=== PATIENT | female | born 1990 | race Caucasian/White ===

== ENCOUNTER 2016-05-29 19:44 | Emergency (ER) | payer BC ==
[~2016-05-29] VITALS: Ht 162.6 cm; Wt 56.7 kg
--- NOTE | 2016-05-29 20:21 | NUR ---
PT "MILD FREQUENCY X1 WEEK/PRESSURE UPON URINATING". VSS . AWAITING MD ORDER
--- NOTE | 2016-05-29 20:31 | NUR ---
URINE SAMPLE COLLECTED SENT TO LAB
[2016-05-29 20:36] LABS: APPEARANCE,URINE Cloudy (CLEAR); BILIRUBIN,URINE Negative (NEGATIVE); BLOOD, URINE Large Ery/uL (NEGATIVE); COLOR,URINE Yellow (YELLOW); KETONES,URINE Negative (NEGATIVE); LEUKOCYTE ESTERASE ,URINE Moderate (NEGATIVE); NITRITE, URINE Negative (NEGATIVE); PH,URINE 5.5 (5.0-8.0); PROTEIN,URINE 100 mg/dl (NEGATIVE); UGLUCOSE Negative (NEGATIVE); UROBILINOGEN,URINE 0.2 EU/dL (0.2)
[2016-05-29 20:45] LABS: ADD URINE CULTURE YES; BACTERIA,URINE Many /HPF (None Seen); PREGNANCY TEST URINE QUAL NEGATIVE (NEGATIVE); RBC,URINE 21-50 /HPF (0-2); SQUAMOUS EPITHELIAL CELL,UR Few /HPF (None Seen); WBC,URINE TOO NUMEROUS TO COUN /HPF (0-3)
[2016-05-29] MEDS ORDERED: CEFTRIAXONE 500 MG VIAL ONE (20:59)
[2016-05-29] MEDS ORDERED: LIDOCAINE /MPF 1% VIAL 5 ML VIAL ONE (20:59)
[2016-05-29] MEDS ORDERED: CEFTRIAXONE 500 MG VIAL IM ONE (21:00)
[2016-05-29] MEDS ORDERED: PHENAZOPYRIDINE HCL 200 MG TABLET ONE (21:00)
[2016-05-29] MEDS ORDERED: PHENAZOPYRIDINE HCL 200 MG TABLET PO ONE (21:00)
--- NOTE | 2016-05-29 21:14 | NUR ---
Patient discharged to home in stable condition. Written and verbal after care instructions given. Patient verbalizes understanding of instruction.
[2016-05-29 21:18] VITALS: BP 105/65
== END 2016-05-29 21:18 | disposition home or self-care (01) ==
LOC: ER 19:49
DX: N39.0 Urinary tract infection, site not specified (principal)
CPT/HCPCS: 81001; 84703; 87086; 96372; 99284; A4606; J0696; J3490; Z7610; 81000-TC; 87186-TC